=== PATIENT | female | born 1955 | race Caucasian/White ===

== ENCOUNTER 2020-09-10 07:58 | Day surgery (SDC) | payer BC ==
[~2020-09-10] VITALS: Ht 162.6 cm; Wt 79.0 kg
[~2020-09-10 07:58] MED LIST: ALBIPROI INH; ALBU90OI; ATOR40TA PO; AZIT500 PO; Atarax10 MG PO; ESCI20 PO; HYDCHL25 PO; IRBE150 PO; LANS15EC PO; LEVFLO500; LORA.5; PROAIR DIGIHAL90 MCG INH; QVAR REDIHALE10.6 G2 INH; Tessalon200 MG PO; [UNRECOGNIZED DRUG - OTHER]
== END 2020-09-10 10:03 | disposition home or self-care (01) ==
LOC: ORSCSDS 07:58
PROVIDERS: Internal Medicine Gastroenterology
PROC: 0DJD8ZZ Inspection of Lower Intestinal Tract, Via Natural or Artificial Opening Endoscopic (ICD-10-PCS; principal; 2020-09-10 09:00)
DX: R15.9 Full incontinence of feces (principal); Z86.010 Personal history of colon polyps; Z85.9 Personal history of malignant neoplasm, unspecified; K21.9 Gastro-esophageal reflux disease without esophagitis; E66.9 Obesity, unspecified; Z68.30 Body mass index [BMI] 30.0-30.9, adult; Z79.899 Other long term (current) drug therapy
CPT/HCPCS: J0330; J0461; J2405; J2704; J7120